=== PATIENT | female | born 2000 | race Caucasian/White ===

== ENCOUNTER 2023-02-23 11:20 | Day surgery (SDC) | payer BC ==
[~2023-02-23] VITALS: Ht 160 cm; Wt 72.6 kg
[~2023-02-23 11:20] MED LIST: ALTA1TAB3; LEXA1TAB2 PO; NS 1,000 ML IV ONE; PANT20TA6 PO; PEPCCHW3 PO
[2023-02-23] MEDS ORDERED: LIDOCAINE 2% 100MG/5ML SDV (FOR ANES.) As Ordered ONE (12:27)
[2023-02-23] MEDS ORDERED: propofoL 200 MG/20 ML VIAL As Ordered ONE (12:27)
[2023-02-23] MEDS ORDERED: fentaNYL 100 MCG/2 ML INJECTION As Ordered ONE (12:27)
[2023-02-23 13:18] VITALS: BP 142/79; O2SAT 99
== END 2023-02-23 13:25 | disposition home or self-care (01) ==
LOC: M OPP 11:20
PROVIDERS: ATTEND Internal Medicine Gastroenterology
DX: K31.89 Other diseases of stomach and duodenum (principal); R10.13 Epigastric pain; R11.2 Nausea with vomiting, unspecified; Z79.1 Long term (current) use of non-steroidal anti-inflammatories (NSAID); Z79.3 Long term (current) use of hormonal contraceptives; Z79.899 Other long term (current) drug therapy
CPT/HCPCS: 43239; 88305; J3010